=== PATIENT | female | born 2005 | race Caucasian/White ===

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

== ENCOUNTER → 2023-01-17 | Outpatient (CLI) | payer MEDICAID, SELFPAY | END | disposition home or self-care (01) | LOC: SL 09:38 | PROVIDERS: PCP Pediatrics; Visit Provider Registered Nurse | DX: Z00.00 Encounter for general adult medical examination without abnormal findings (principal) ==

== ENCOUNTER 2024-07-29 15:00 | Outpatient (RCR) | payer MEDICAID, SELFPAY ==
--- NOTE | 2024-05-16 15:05 | HP.OTEVAL ---
Patient's Visit Information Visit Information Visit Information: DADA GUARDADO is a 19 year old F, referred to Occupational Therapy by SMITH Tam, with a diagnosis of chronic left hand numbness/weakness, chronic general weakness, dev. delay. Date of Evaluation: 05/16/24 Occupational Therapist: Cassie Jackson, LINDSEY/Danay, CHT Subjective Subjective: This 19 year old female was seen for OT eval with dx of chronic left hand numbness/weakness, chronic general weakness, developmental delay. 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 pt states she notices if she is holding a coffee pot she has had increase in tremor ( noticed this when she was 14 years old) Pt states she is right handed pt states she would like to increase her UB strength to increase her IND with daily tasks. Pain left hand: Current Pain Intensity: 0 Pain Intensity Range: 4 ROM ROM Comments: pt demo ROM WNL of bilateral UE/hands Strength Elbow: Triceps R 19# left 18# Biceps 20# left 21# Wrist: right/left WNL Wastewater Treatment Engineer: right 45# left 40# Lateral Pinch: right 14# left 12# Tripod Pinch: right 10# left 11# Sensation Sensation Comments: denies Nine Hole Peg Right: 24.17 sec. Left: 27.88 In-Hand Manipulation Finger to Palm Translation: Normal - Right and Normal - Left Palm to Finger Translation: Normal - Right and Normal - Left Goals Goal:: pt will demo a increase in peak force testing by 10# to increase pts ind with ADLs and IADLs by d/c pt will demo a increase in bilateral clinical resource director strength by 10# to increase pts ind.with ADLs by d.c pt will demo a increase in bilateral lateral and tripod pinch by 4# to increase pts ind with ADLs and IADLs by d/c Goal:: pt will report no pain greater than 2/10 with daily occupations by d/c. Rehabilitation General Assessment: Pt demo with decrease strength of bilateral UE and clinical resource director/pinch decreasing pts ind with IADls and work tasks. Pt would benefit from skilled OT services 2x week for 6 weeks to increase pts functional strength to increase pts IND with ADLs and IADLs. Rehabilitation Potential: Good Anticipated Interventions Anticipated Interventions: Strengthening, Orthoses, Joint Protection/Energy Conservation, Education re assistive Equipment and Education re Diagnosis Visit Plan Frequency: 1-2x /Week Duration: 6 Weeks TEXT: Thank you for the opportunity to evaluate your patient. For Medicare and Medicare HMO plans, please review the plan of care and approve it. It will need to be FAXED BACK to us at [phone] for Medicare purposes. Please let me know if there are questions or concerns regarding this plan of care. Physician Signature: Date:
--- NOTE | 2024-05-16 15:07 | HP.OTEVAL ---
Patient's Visit Information Visit Information Visit Information: DADA GUARDADO is a 19 year old F, referred to Occupational Therapy by SMITH Tam, with a diagnosis of chronic left hand numbness/weakness, chronic general weakness, dev. delay. Date of Evaluation: 05/16/24 Occupational Therapist: Cassie Jackson, LINDSEY/Danay, CHT Subjective Subjective: This 19 year old female was seen for OT eval with dx of chronic left hand numbness/weakness, chronic general weakness, developmental delay. 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 pt states she notices if she is holding a coffee pot she has had increase in tremor ( noticed this when she was 14 years old) Pt states she is right handed pt states she would like to increase her UB strength to increase her IND with daily tasks. Pain left hand: Current Pain Intensity: 0 Pain Intensity Range: 4 ROM ROM Comments: pt demo ROM WNL of bilateral UE/hands Strength Elbow: Triceps R 19# left 18# Biceps 20# left 21# Wrist: right/left WNL Labor Trainer: right 45# left 40# Lateral Pinch: right 14# left 12# Tripod Pinch: right 10# left 11# Sensation Sensation Comments: denies Nine Hole Peg Right: 24.17 sec. Left: 27.88 In-Hand Manipulation Finger to Palm Translation: Normal - Right and Normal - Left Palm to Finger Translation: Normal - Right and Normal - Left Goals Goal:: pt will demo a increase in peak force testing by 10# to increase pts ind with ADLs and IADLs by d/c pt will demo a increase in bilateral telephone maintenance mechanic strength by 10# to increase pts ind.with ADLs by d.c pt will demo a increase in bilateral lateral and tripod pinch by 4# to increase pts ind with ADLs and IADLs by d/c Goal:: pt will report no pain greater than 2/10 with daily occupations by d/c. Rehabilitation General Assessment: Pt demo with decrease strength of bilateral UE and telephone maintenance mechanic/pinch decreasing pts ind with IADls and work tasks. Pt would benefit from skilled OT services 2x week for 6 weeks to increase pts functional strength to increase pts IND with ADLs and IADLs. Rehabilitation Potential: Good Anticipated Interventions Anticipated Interventions: Strengthening, Orthoses, Joint Protection/Energy Conservation, Education re assistive Equipment and Education re Diagnosis Visit Plan Frequency: 1-2x /Week Duration: 6 Weeks TEXT: Thank you for the opportunity to evaluate your patient. For Medicare and Medicare HMO plans, please review the plan of care and approve it. It will need to be FAXED BACK to us at [phone] for Medicare purposes. Please let me know if there are questions or concerns regarding this plan of care. Physician Signature: Date:
--- NOTE | 2024-05-20 10:56 | HP.SP.EVAL ---
Visit History Visit Info Date of Eval: 05/16/24 Visit: 1 Patient's Approved Number of Visits: 30 Insurance Date Limit: 02/05/25 Petroleum Transport Driver: TYRONE Davis Attending Doctor: DMITRY Referring Doctor: DMITRY Reason for Referral: LEFT HAND, DEVELOPMENTAL DELAY RX HERE Previous speech therapy: Yes Results: Pt reporting that she has received speech therapy since she was 18 months. She had therapy through high school. She believes she worked on social skills and understanding social cues along with general communication skills. Dada reporting that when she was 9 years old, she was tested by neuropsychology and it was deemed that cognitively she was younger than 9. She reports she was more like a 6-8 year old. She reports that she would like to have the testing completed again, but [facility] told her the test was for children only. Other Relevant Medical History/Diagnoses/Surgery: DADA GUARDADO is a 19 year old who presented to [facility] on 05/17/23 for a speech therapy evaluation d/t concerns with her communication skills. She attended the evaluation independently and served as historian. She lives with her mom and three roommates. Dada reporting that she didn't start talking or walking until 1 years old and that she was on an IEP for academics and therapy through her senior year of high school. Pt reporting that she is having difficulty with communicating while she is at work. She works at [employer] 2 days a week and at [employer] 1 day a week. She has no other extracurriculars or hobbies at this time, so the only time she is practicing communication skills outside of her home is at her job. Pt reporting there are miscommunications that occur at work which at times can cause her to get in trouble. Smoking Status: Never smoker Diagnosis Diagnosis: Pragmatic Communication Deficit, Developmental Delay Pain Is pain an issue with your current prescribed condition?: No Personal Preferred language: Tongan Patient Allergies Allergies Allergies: Allergies poison sumac extract Allergy (Severe, Verified 11/20/23 15:58) Swelling Environmental Allergies: Uncoded Adverse Reaction (Verified 11/20/23 15:58) Rash SUMAC famotidine (From Pepcid) Adverse Reaction (Verified 11/20/23 15:58) Other ABD PAIN Reference: Neuro-QoL instrument Radiation Oncology Patient Other Other CASL Administration: -: The Comprehensive Assessment of Spoken Language is a norm-referenced oral language assessment battery of tests for child ages 3 through 21 in four language areas: lexical/ semantic, syntactic, supralinguistic and pragmatic. Standard score of 100 with a standard deviation of 15. The subtests that were able to be administered in the timeframe of the session are listed below: - Nonliteral language: Understanding of the meaning of spoken messages independent of the literal interpretation of the surface structure. This subtest assesses the ability to comprehend nonliteral language in the form of figurative speech, indirect requests, and sarcasm. Deficits in this area lead to serious communication deficits. RAW SCORE = 20, STANDARD SCORE = 53 - Meaning from Context: Derivation of the meaning of words from their oral linguistic context. This is the ability to use information found within the linguistic context of immediate information to determine the meaning of an unknown word. Deficits in this area may indicate there is a lack of world knowledge and not related to generalized inferencing problem. RAW SCORE = 19, STANDARD SCORE = 78 Need to continue testing to determine areas of strength and areas of growth to create an appropriate plan of care. 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 Pt would benefit from training in identifying and using figurative language, understanding nonliteral language, topic maintenance, turn taking, and attending to conversation. Without skilled ST services, the Pt is at risk for difficulty communicating and interpreting social wants and needs with her family and peers. Recommendations Treatment Warranted: Yes Treatment Warranted: Receptive/ Expressive Language and Social Pragmatic Communication Progress Prognosis: Fair Frequency Frequency: 1x/Week Duration: 2 Months Visits in this POC: 8 Patient/Family Goal Patient/Family Goal: To improve communication skills Goals that are Established Determination:: Goals will be added/modified as deemed necessary and appropriate. Therapy will be discontinued when results of re-evaluation indicate therapy is no longer needed or lack of progress has been documented. Goal #1-5 Goal #1: Mychala will show understanding of nonliteral/figurative language by explaining a target or acting it out with 70% acc given min verbal, visual, and pragmatic cues. Goal #2: Mychala will show understanding of indirect language by explaining a target or acting it out with 70% acc given min verbal, visual, and pragmatic cues. Education Patient has Indicated that the Following Identified Educational Needs: Cognitively Impaired Other Educational Needs: Developmental delay. The Patient has indicated that they have no educational or learning abilities that may effect their care.: No Patient Instruction Patient Education: Diagnosis Person Taught: Patient Teaching Method: Discussion and Demonstration Response to teaching: Return Demonstration and Verbalize Understanding
--- NOTE | 2024-05-20 19:14 | HP.PTEVAL ---
Patient's Visit Information Visit Information Visit Information: DADA GUARDADO is a 19 year old F referred to Physical Therapy by SMITH Tam with a diagnosis of WEAKNESS. Date of Evaluation: 05/20/24 Physical Therapist: Jessica Chaves PT, Cert MDT Visit Plan Frequency: 2x /Week Duration: 4-6 Weeks Plan: Focus on HEP Instruction with pictures and progression each visit with re-enforcement as needed (include care-truck rental clerk if needed). 1. Neutral Spine Core Stability Exercises 2. Heather LE Hip Flexor, Hamstring and Calf Stretching to help reduce stress to the Lumbar Spine with all Daily Home and Work Activities. 3. Heather LE Strengthening. 4. *Instruction in Proper Posture Control, Body Mechanics, and Appropriate Activity Modifications Specific to Work Related Activities* Subjective Subjective: Work/Leisure: WORKING AT [employer] FOR A TOTAL OF ABOUT 12 HOURS A WEEK (3, 4 HOUR SHIFTS). HAS BEEN WORKING AT [employer] ABOUT 1 YEAR AND [employer] ABOUT 6 MONTHS. Disability: YES Present symptoms: WEAKNESS IN LEGS. HARD TO GET UP FROM PUTTING THINGS ON BOTTOM SHELVES AT WORK AT [employer]. SHE ALSO REPORTS IT IS HARD TO PICK BOXES OF FRIES UP FROM THE SECOND AND THIRD SHELVES BECAUSE SHE CAN'T BEND HER KNEES AND GET BACK UP - THEY ARE 36 LBS. PATIENT DENIES PAIN BUT REPORTS INTERMITTENT LEG CRAMPS THAT COME RANDOMLY AND NOT DAILY OR WEEKLY. Present since: ALWAYS. PATIENT STATES SHE DOESN'T REMEMBER A TIME THAT SHE HAS EVER BEEN ABLE TO GET UP FROM THE FLOOR WITHOUT USING HER ARMS BUT IT IS GETTING HARDER AND TAKING LONGER TO GET UP THAN IT USE TO. Is it getting better, worse or staying the same: GETTING WORSE. Commenced as a result of: DEVELOPMENTAL DELAY. Previous history/Previous treatment: PATIENT AND PATIENT'S MOM REPORT LONG HISTORY OF PHYSICAL THERAPY SINCE CHILDHOOD AND FOR BACK SURGERY FOR SCOLIOSIS IN AUGUST 2013 AND THEN SEP 06 2013 FOR L4 FX SUSTAINED AFTER THE FIRST SURGERY. Treatment this episode: CURRENTLY ALSO IN OT AND ST FOR DEVELOPMENT CONDITIONS. Gait: DENIES ANY RECENT FALLS. Bowel or Bladder Dysfunction: PATIENT REPORTS OCCASSIONAL URINARY ACCIDENTS, DOES NOT WEAR PROTECTION AND DENIES BOWEL INCONTINENCE. Unexplained weight loss: NO Imaging: DENIES ANY RECENT LOW BACK OR LE'S. PMH/Recent major surgery: MARFAN'S SYNDROME, SCOLIOSIS. Objective Objective: Sitting/Standing Posture: SCOLIOTIC SPINE WITH INCREASED LORDOSIS AND ANTERIOR PELVIC TILT. Other Observations: INDEP GAIT. NO AD. INDEP TRANSFER SIT TO STAND WITHOUT UE ASSIST. Sensory deficit: HEATHER LE LIGHT TOUCH SENSATION GROSSLY INTACT AND SYMMETRICAL. ROM deficit: TIGHT HEATHER LE HS, HIP FLEXORS, HIP ROTATORS, AND CALVES R>L Motor deficit: HEATHER LE'S GROSSLY 5/5 WITH MMT'ING EXCEPT HIPS 4/5 Dural Signs: NEGATIVE HEATHER LE'S. Lumbar mvmt loss: flex - NIL ext - MOD R SG - NAE L SG - NAE Core strength: POOR. SLS R LE X 10 SEC WITHOUT UE ASIST AND 6 SEC L LE WITHOUT UE ASSIST. 30 SEC STS TEST WITHOUT UE ASSIST = 4. OTHER: NO C/O PAIN THROUGHOUT SESSION. PATIENT UNABLE TO DEMO FLOOR TO STAND TRANSFER WITHOUT UE ASSIST. UNABLE TO SQUAT THREFORE UNABLE TO DEMO GOOD BODY MECHANICS FOR LIFTING. Goals Goal 1:: PATIENT WILL BE INDEP WITH A HEP FOR CORE STRENGTHENING AND HEATHER LE STRETCHING AND STRENGTHEING FOR CONTINUED IMPROVEMENT ONCE FORMAL PHYSICAL THERAPY CONCLUDES. Goal Time Frame: 6-8 Weeks Goal 2:: PATIENT WILL COMPLETE 8 STANDS IN 30 SECS WITHOUT UE ASSIST TO DEMONSTRATE IMPROVED FUNCTIONAL LE STRENGTH Goal Time Frame: 6-8 Weeks Goal 3:: PATIENT WILL DEMONSTRATE GOOD BODY MECHANICS FOR BENDING AND LIFTING SPECIFIC TO WORK RELATED DUTES FOR HEALTHY BACK HABITS. Goal Time Frame: 6-8 Weeks Goal 4:: PATIENT WILL BE ABLE TO SAFELY AND EFFICIENTLY GET UP AND DOWN FROM THE FLOOR TO BE ABLE TO PERFORM JOB DUTIES INVOLVED IN STOCKING LOW SHELVES AT WORK. Goal Time Frame: 6-8 Weeks Rehabilitation Potential Physical Therapy Diagnosis: CORE AND HEATHER LE STIFFNESS AND WEAKNESS LIMITING PROPER POSTURE CONTROL AND BODY MECHANICS FOR ADL AND WORK FUNCTION. Rehabilitation Potential: Good Anticipated Interventions Patient/Client Instruction: Educate patient on: Condition, Plan of Care and Risk Factors For the Purpose of:: To facilitate caregiver knowledge and To improve self management Therapeutic Exercise to Include: Strength training, Body mechanics, Postural training, Flexibilty training, Neuromotor development and Dynamic Lumbar Stabilization For the Purpose of:: To improve muscle performance and motor function, To increase tolerance to activity/condition/position, To improve ability of physical actions for home/community/work/leisure, To increase flexibility/ROM and To improve self management Text: Thank you for the opportunity to evaluate your patient. For Medicare and Medicare HMO plans, please review the plan of care and approve it. It will need to be FAXED BACK to us at [phone] for Medicare purposes. For Medicare only, by signing this I certify the plan of care. Please let me know if there are questions or concerns regarding this plan of care. Physician Signature: Date:
--- NOTE | 2024-07-15 18:56 | HP.PTDCSUM ---
Discharge Summary D/C summary: It has been my pleasure to treat DADA GUARDADO referred by SMITH Tam, with the diagnosis of WEAKNESS for a total of 9 visit(s). Discharge Date: 07/15/24 Please see the following information for a summary of their discharge status. Subjective Subjective: PATIENT REPORTS WORK IS GOING PRETTY GOOD. SHE REPORTS COMPLIANCE WITH HER HOME EX'S. SHE REPORTS INTERMITTENT STRAIN IN HER KNEES WITH KNEELING. Pain B feet: Pain Intensity (Out of 10): 0 Objective Objective/Function: PATIENT WAS SEEN TODAY FOR RE-ASSESSMENT OF PROGRESS TOWARD THE SET PT GOALS AND THE NEED FOR FURTHER PHYSICAL THERAPY VS READINESS FOR DISCHARGE. THIS PATIENT HAS MADE GOOD PROGRESS WITH PT IN TERMS OF LE STRENGTH AND BALANCE AND IS NOW INDEP WITH A HEP. SHE IS HOWEVER LIMITED IN HER ABILITY TO USE GOOD BODY MECHANICS AND GET HERSELF UP FROM THE FLOOR AND SHE IS NOT IMPROVING IN THESE AREAS. UPON EXAM TODAY: Motor deficit: HEATHER LE'S GROSSLY 5/5 WITH MMT'ING. Dural Signs: NEGATIVE HEATHER LE'S. Lumbar mvmt loss: flex - NIL WITH SOME HIP AND KNEE BENDING IN STANDING - SHE IS ABLE TO TOUCH THE FLOOR. WITH KNEES STRAIGHT SHE HAS MOD LUMBAR MVMT LOSS. ext - MOD R SG - NAE L SG - NAE Core strength: POOR. SLS R LE X 20+ SEC WITHOUT UE ASIST AND 20+ SEC L LE WITHOUT UE ASSIST. 30 SEC STS TEST WITHOUT UE ASSIST = 8. OTHER: NO C/O PAIN THROUGHOUT SESSION. PATIENT IS STILL UNABLE TO DEMO FLOOR TO STAND TRANSFER WITHOUT UE ASSIST AND STILL UNABLE LIMITED IN ABILITY TO SQUAT THREFORE LIMITED IN USE OF GOOD BODY MECHANICS WITH BENDING AND LIFTING. PATIENT MIGHT BENEFIT FROM FUNCTIONAL CAPACITY ASSESSMENT TO DETERMINE SAFE WORK DUTIES. Goals Goal 1:: PATIENT WILL BE INDEP WITH A HEP FOR CORE STRENGTHENING AND HEATHER LE STRETCHING AND STRENGTHEING FOR CONTINUED IMPROVEMENT ONCE FORMAL PHYSICAL THERAPY CONCLUDES. Goal Progress: Goal Met Goal 2:: PATIENT WILL COMPLETE 8 STANDS IN 30 SECS WITHOUT UE ASSIST TO DEMONSTRATE IMPROVED FUNCTIONAL LE STRENGTH Goal Progress: Goal Met Goal 3:: PATIENT WILL DEMONSTRATE GOOD BODY MECHANICS FOR BENDING AND LIFTING SPECIFIC TO WORK RELATED DUTES FOR HEALTHY BACK HABITS. Goal Progress: Not Progressing Goal 4:: PATIENT WILL BE ABLE TO SAFELY AND EFFICIENTLY GET UP AND DOWN FROM THE FLOOR TO BE ABLE TO PERFORM JOB DUTIES INVOLVED IN STOCKING LOW SHELVES AT WORK. Goal Progress: Not Progressing Plan Plan: D/C TO HEP AND PHYSICIAN FOLLOW UP. PATIENT CAME TO THIS RE-CHECK ALONE TODAY. D/C Information d/c sentence: If there are questions or concerns regarding this patient's physical therapy, please feel free to call me at [phone]. Thank you for the referral of this patient. Sincerely, Jessica Chaves, PT, Cert MDT
--- NOTE | 2024-07-19 13:34 | HP.OTDCSUM ---
Discharge Summary D/C Summary: It has been my pleasure to treat DADA GUARDADO under orders from SMITH Tam, for the diagnosis of chronic left hand numbness/weakness, chronic general weakness, dev. delay for a total of 13 visit(s). Please see the following information for a summary of their discharge status. Overall Improvement % Improvement: 85 Objective Objective/Function: Pressure Controller: right 50# left 45# Lateral Pinch: right 14# left 14# Tripod Pinch: right 12# left 11# Elbow: Triceps R 23# left 19# Biceps 25# left 22# Goals Patient Goals: Regain Strength and Use Hand/Wrist/Arm Normally Again Goal:: pt will demo a increase in peak force testing by 10# to increase pts ind with ADLs and IADLs by d/c pt will demo a increase in bilateral clay mine cutting machine operator strength by 10# to increase pts ind.with ADLs by d.c pt will demo a increase in bilateral lateral and tripod pinch by 4# to increase pts ind with ADLs and IADLs by d/c Goal:: pt will report no pain greater than 2/10 with daily occupations by d/c. Plan Plan: Last appt- chart can be D/melanie. D/C Information Discharge Comments: pt has reached her max rehab potential at this time. Pt has HEP and agrees to cont. with it. pt d/c at this time. d/c sentence: If there are questions or concerns regarding this patient's occupational therapy, please fell free to call me at [phone]. Thank you for the referral of this patient. Sincerely, Cassie Jackson, OTR/L, CHT
--- NOTE | 2024-08-05 14:41 | HP.SP.REEV ---
Visit History Visit Info Date of Eval: 05/16/24 Today is Visit #: 1 Patient's Approved Number of Visits: 30 Insurance Date Limit: 02/05/25 Principal Cyber Engineer: [employer] History Attending Doctor: DMITRY Referring Doctor: DMITRY Reason for Referral: LEFT HAND, DEVELOPMENTAL DELAY RX HERE Previous speech therapy: Yes Results: Pt reporting that she has received speech therapy since she was 18 months. She had therapy through high school. She believes she worked on social skills and understanding social cues along with general communication skills. Dada reporting that when she was 9 years old, she was tested by neuropsychology and it was deemed that cognitively she was younger than 9. She reports she was more like a 6-8 year old. She reports that she would like to have the testing completed again, but [facility] told her the test was for children only. Other Relevant Medical History/Diagnoses/Surgery: DADA GUARDADO is a 19 year old who presented to [facility] on 05/17/23 for a speech therapy evaluation d/t concerns with her communication skills. She attended the evaluation independently and served as historian. She lives with her mom and three roommates. Dada reporting that she didn't start talking or walking until 1 years old and that she was on an IEP for academics and therapy through her senior year of high school. Pt reporting that she is having difficulty with communicating while she is at work. She works at [employer] 2 days a week and at [employer] 1 day a week. She has no other extracurriculars or hobbies at this time, so the only time she is practicing communication skills outside of her home is at her job. Pt reporting there are miscommunications that occur at work which at times can cause her to get in trouble. Smoking Status: Never smoker Diagnosis Diagnosis: DEVELOPMENTAL DELAY, Significant expressive/receptive Language deficits. Pain Is pain an issue with your current prescribed condition?: No Personal Preferred language: Divehi Patient Allergies Allergies Allergies: Allergies poison sumac extract Allergy (Severe, Verified 11/20/23 15:58) Swelling Environmental Allergies: Uncoded Adverse Reaction (Verified 11/20/23 15:58) Rash SUMAC famotidine (From Pepcid) Adverse Reaction (Verified 11/20/23 15:58) Other ABD PAIN Previous/Current Goals Goals 1-5 Previous Goal #1: Dada will show understanding of nonliteral/figurative language by explaining a target or acting it out with 70% acc given min verbal, visual, and pragmatic cues. Goal 1 Status: GOAL CONTINUES: Dada can explain non literal language 60% of the time with support. She can often tell you the meaning in structured tasks but appears to have more difficulty when they are in conversation. Previous Goal #2: Dada will show understanding of indirect language by explaining a target or acting it out with 70% acc given min verbal, visual, and pragmatic cues. Goal 2 Status: GOAL CONTINUES: Dada can demonstrate an understanding in structured task approximately 50% of the time with support. Previous Goal #3: New goal: Patient will complete simple problem solving tasks for functional activities of daily living with 75% accuracy with minimal cues. Goal 3 Status: This goal was recently added and has been addressed with limited sessions. Dada asked to problem solve moving out. She previously had a voucher for section 8 housing but stated that it . Problem solving with money and renting an apartment were discussed. Dada did not have any idea what her expenses would be. She was able to list her income for the month (with her two paychecks going to her account and her other income - social security disability possibly- going to her mother.). She was unable to make a basic expense vs income and was unable to problem solve steps to get section 8 housing again. She was able to text her recruiter account manager to ask about the waiting list for the long-term. She needs maximal cues to complete all problem solving tasks at this time. Reference: Neuro-QoL instrument Radiation Oncology Patient Other Other CASL Administration: -: The Comprehensive Assessment of Spoken Language is a norm-referenced oral language assessment battery of tests for child ages 3 through 21 in four language areas: lexical/ semantic, syntactic, supralinguistic and pragmatic. Standard score of 100 with a standard deviation of 15. The subtests that were able to be administered in the timeframe of the session are listed below: - Nonliteral language: Understanding of the meaning of spoken messages independent of the literal interpretation of the surface structure. This subtest assesses the ability to comprehend nonliteral language in the form of figurative speech, indirect requests, and sarcasm. Deficits in this area lead to serious communication deficits. RAW SCORE = 20, STANDARD SCORE = 53 - Meaning from Context: Derivation of the meaning of words from their oral linguistic context. This is the ability to use information found within the linguistic context of immediate information to determine the meaning of an unknown word. Deficits in this area may indicate there is a lack of world knowledge and not related to generalized inferencing problem. RAW SCORE = 19, STANDARD SCORE = 78 Need to continue testing to determine areas of strength and areas of growth to create an appropriate plan of care. Plan Plan Plan: Dada has requested to continue therapy. This plan of care is for another 8 weeks to determine progress and to see if she can obtain other resources that may be more appropriate for her developmental level. Recommendations Treatment Warranted: Yes Treatment Warranted: Receptive/ Expressive Language Progress Prognosis: Fair Frequency Frequency: 1x/Week Duration: 2 Months Visits in this POC: 8 Patient/Family Goal Patient/Family Goal: To improve communication skills Goals that are Established Determination:: Goals will be added/modified as deemed necessary and appropriate. Therapy will be discontinued when results of re-evaluation indicate therapy is no longer needed or lack of progress has been documented. Goal #1-5 Goal #1: Dada will show understanding of nonliteral/figurative language by explaining a target or acting it out with 70% acc given min verbal, visual, and pragmatic cues. Goal #2: Dada will show understanding of indirect language by explaining a target or acting it out with 70% acc given min verbal, visual, and pragmatic cues. Goal #3: Dada will complete simple problem solving tasks for functional activities of daily living with 75% accuracy with minimal cues. Education Patient has Indicated that the Following Identified Educational Needs: None The Patient has indicated that they have no educational or learning abilities that may effect their care.: Yes Patient Instruction Patient Education: Diagnosis Person Taught: Patient Teaching Method: Discussion and Demonstration Response to teaching: Return Demonstration and Verbalize Understanding
--- NOTE | 2024-10-09 09:49 | HP.SP.DC ---
ST Discharge Summary Discharged: Discharge: Randolph Donaldson is discharged from [facility] as of October 09, 2024. She was evaluated on 05/16/24 for Receptive/ Expressive Language and Social Pragmatic Communication. She attended a total of 9 visits weekly. Last session completed was July 29, 2024. Goal summary: Goal #1: Randolph will show understanding of nonliteral/figurative language by explaining a target or acting it out with 70% acc given min verbal, visual, and pragmatic cues. Randolph can explain non literal language 60% of the time with support. She can often tell you the meaning in structured tasks but appears to have more difficulty when they are in conversation. Goal #2: Randolph will show understanding of indirect language by explaining a target or acting it out with 70% acc given min verbal, visual, and pragmatic cues. Randolph can demonstrate an understanding in structured task approximately 50% of the time with support. Goal #3: Patient will complete simple problem solving tasks for functional activities of daily living with 75% accuracy with minimal cues. This goal was recently added and has been addressed with limited sessions. Randolph asked to problem solve moving out. She previously had a voucher for section 8 housing but stated that it . Problem solving with money and renting an apartment were discussed. Randolph did not have any idea what her expenses would be. She was able to list her income for the month (with her two paychecks going to her account and her other income - social security disability possibly- going to her mother.). She was unable to make a basic expense vs income and was unable to problem solve steps to get section 8 housing again. She was able to text her software developer consultant to ask about the waiting list for the detention. She needs maximal cues to complete all problem-solving tasks at this time. Randolph requested to continue therapy after the initial plan of care and a new plan of care was completed to continue previous goals as they had not been met with therapy recommended for another 8 weeks. On her last visit she stated that her mother would call to schedule her visits and scheduling called to attempt to schedule before discharge. No further contact from patient or family since that time. Please see daily notes and reports for complete details. Thank you for allowing me to participate in the care of this patient.
== END 2024-07-29 19:00 | disposition home or self-care (01) ==
LOC: SP 15:00
PROVIDERS: PCP Pediatrics; Referring Provider Registered Nurse; Visit Provider Registered Nurse
DX: R62.50 Unspecified lack of expected normal physiological development in childhood (principal); R53.1 Weakness; R47.9 Unspecified speech disturbances
CPT/HCPCS: 92507; 92523; 97110; 97140; 97162; 97166; 97530